=== PATIENT | male | born 1960 | race Caucasian/White ===

== ENCOUNTER → 2019-08-06 13:55 | Outpatient (CLI) | payer OTHER, SELFPAY | PROVIDERS: PCP Family Medicine; Visit Provider Orthopaedic Surgery | DX: Z01.818 Encounter for other preprocedural examination (principal); Z01.812 Encounter for preprocedural laboratory examination; N39.9 Disorder of urinary system, unspecified; Z13.1 Encounter for screening for diabetes mellitus; R73.9 Hyperglycemia, unspecified | CPT/HCPCS: 93005 ==

== ENCOUNTER 2019-10-22 06:02 | Inpatient (IN) | payer OTHER, SELFPAY ==
[2019-10-19 11:57] VITALS: BMI 26.6
[2019-10-22] VITALS (13 sets, daily range): BP systolic 101–180; BP diastolic 56–106; PULSE 71–93; RESP 10–18; TEMP 36.1–36.8; O2SAT 93–99; BMI 26.6
--- NOTE | 2019-10-22 | DI.RAD.S_ITS ---
PROCEDURE: XR HIP W PEL IF DONE RT 4V INDICATIONS: ANTERIOR HIP ARTHROPLASTY TECHNIQUE: Fluoroscopic images were obtained during an operative procedure and submitted for interpretation following the completion of the procedure. COMPARISON: [facility] [place], CR, XR PELVIS WITH BILATERAL LATERAL HIPS, 07/26/2019, 9:30. Outside Film, CR, XR PELVIS WITH BILATERAL LATERAL HIPS, 07/08/2019, 17:57. FINDINGS: These fluoroscopic images were performed for intraoperative localization. On these images, right hip arthroplasty hardware has been placed. No focal abnormality is seen. Please correlate with intraoperative findings. IMPRESSION: Normal intraoperative examination. Dictated by: Gerardo Prince M.D. on 10/22/2019 at 10:48 Approved by: Gerardo Prince M.D. on 10/22/2019 at 10:49
--- NOTE | 2019-10-22 06:00 | DI.RAD.S_ITS ---
PROCEDURE: XR HIP W PEL IF DONE RT 2V INDICATIONS: post op films TECHNIQUE: AP pelvis and lateral view of the right hip acquired. COMPARISON: Outside Film, CR, XR PELVIS WITH BILATERAL LATERAL HIPS, 07/08/2019, 17:57. [facility] [place], CR, XR PELVIS WITH BILATERAL LATERAL HIPS, 07/26/2019, 9:30. [facility], CR, XR HIP W PEL IF DONE RT 4V, 10/22/2019, 9:31. FINDINGS: Bones: Patient is status post right hip arthroplasty, with hardware components in expected positions. The hip joint appears congruent. The visualized bony structures appear intact. Soft tissues: Overlying postoperative changes are noted. No suspicious soft tissue densities. IMPRESSION: Normal postoperative examination. Dictated by: Gerardo Prince M.D. on 10/22/2019 at 11:04 Approved by: Gerardo Prince M.D. on 10/22/2019 at 11:05
[2019-10-22] MEDS: ACETAMINOPHEN 325 MG TABLET 975 MG PO (07:15)
[2019-10-22] MEDS: LACTATED RINGERS 1,000 ML 42 ML IV ×2 (07:15→09:41)
[2019-10-22] MEDS: VANCOMYCIN 1,000 MG/200 ML PIGGYBACK 200 MG IV (07:15)
[2019-10-22] MEDS: PREGABALIN 75 MG CAPSULE PO (07:16)
[2019-10-22] MEDS: MELOXICAM 7.5 MG TABLET 15 MG PO (07:16)
--- NOTE | 2019-10-22 07:46 | PM.PREOP ---
Pre-operative Note Interval Note History & Physical reviewed/Exam performed by Physician: Yes Changes to H&P: No
--- NOTE | 2019-10-22 07:48 | P.OP_ITS ---
Operative Date/Time/Diagnoses Date of procedure: 10/22/19 Time of procedure: 07:59 Pre-op diagnosis: right hip OA Post-op diagnosis: same Procedure & Clinicians Procedure: Right total hip arthroplasty Same procedure as scheduled: Yes Indications: The patient has had progressively worsening right hip pain with radiographic changes consistent with arthritis. Non-operative management has failed and the patient has requested total hip replacement. The risks, benefits and alternatives to surgery were discussed with the patient prior to proceeding. Risks discussed included, but were not limited to, failure to relieve pain, leg length discrepancy, dislocation, stiffness, infection, nerve damage, deep venous thrombosis, pulmonary embolism, stroke, coma, heart attack, permanent paralysis and , as well as the potential need for eventual revision of the prosthetic. Surgeon: Sunitha Orozco Van Driver Helper: Geovanna Vo Anesthesia Type: General and Spinal Operative Notes Findings: Severe right hip osteoarthritis, good stability, adequate bone Closure Type: primary Specimen(s): none sent Prosthetic devices, grafts, tissues, transplants, or devices: Orozco and Nephew 56 mm R3 cup, size 5 standard offset anthology, +0 head Oxinium Applied: catheter Estimated Blood Loss (mL): 250 Blood products transfused: none Procedure in detail: The patient was brought to the operating room. Patient was carefully positioned in the supine position. Time-out was performed and antibiotics were given. Anesthesia was induced. He was positioned in the on the table in order to allow hyperextension of the hip. The right lower extremity was prepped and draped in a standard sterile fashion. An anterior right hip incision was made 1 fingerbreadth lateral to the anterior superior iliac spine and extended distally towards the greater trochanter. Dissection was carried out through skin and subcutaneous tissues. The skin and subcutaneous tissues were carefully injected with Lidocaine with epi. Superficial hemostasis was achieved. The fascia over the tensor fascia shaw was defined and incised with a knife. Two Allis clamps were used to grasp the fascia. Tensor fascia shaw was retracted laterally. A gelpi retractor was placed. Dissection was carried out down along the neck. The circumflex vessels were carefully identified and cauterized with the Aqua Mantis. There was good visualization of the femoral neck. A Cobra was placed superior to the neck and the gluteus fibers were carefully stripped from that superior aspect of the capsule. A 2nd retractor was placed along the inferior aspect of the neck. The rectus insertion along the capsule was partially released. A 3rd retractor that was then gently placed over the rim of the acetabulum under the rectus. Capsule was carefully incised and released from the intertrochanteric line circumferentially superior to the mid sagittal line and inferiorly to the mid sagittal line until the lesser trochanter was palpable. A tag stitch was placed both in the superior and inferior limb of the capsular insertion. Along the acetabulum capsule was also released up to the mid sagittal 12:00 position. A portion of the labrum was resected. A saw was used to perform an osteotomy at the level of the intertrochanteric line and the junction of the superior femoral neck leaving approximately 1 finger breath of residual inferior neck above the lesser trochanter. A 2nd cut was made along the femoral neck at the base of the head and a napkin ring of neck was removed. Corkscrew was placed in the femoral head and the head was removed without difficulty. Retractors were then repositioned around the acetabulum. Residual labrum was resected and additional osteophytes were removed. A reamer that was 4 mm below the templated size was placed by hand in the acetabulum and it was reamed to centralize the acetabulum. It was then reamed up to 2 under the templated size and fluoroscopy was brought in to confirm the position of the reaming and depth of reaming. I reamed 1 under the anticipated size. A trial cup was placed and noted that it was appropriately sized and fluoroscopy confirmed position and depth. The component was open and inserted without difficulty fluoroscopic imaging was used to confirm that the cup had been adequately seated and was well positioned. Neutral poly liner was placed. The cup was tested and noted to be stable. Attention was then directed to the femur. The femur was gently hyperextended additional capsular release was performed as needed in order to allow adequate visualization of the proximal femur with elevation of the femur. Patient was placed in a hyperextended slightly adducted position with maximum external rotation. Box osteotome was used to check for any residual neck as well as sclerotic bone along the trochanter. [place] pepper was placed in the femur. Additional broaching was performed. Canal finder was used to determine the alignment of the canal and position. Size 1 broach was placed. The canal was then appropriately broached up to the templated size as long as there was adequate stability of the broach and serial advancement of the broach without excessive impingement. Specific attention was directed at avoiding varus attempting to direct the distal aspect of the broach more anteriorly and avoiding excessive anteversion. Trial reduction showed acceptable range of motion, good stability, no posterior impingement, holiness of leg length and appropriate lateral shuck. I also hyperflexed the hip and checked that there was no impingement anteriorly and there was good stability with flexion, adduction and internal rotation. Final neutral poly was placed without difficulty. Marcaine and Exparel were injected. The stem was placed without difficulty. Repeat trial reduction and x-ray showed acceptable overall position, length, and no evidence of the femoral fracture. Final head was placed. Wound was meticulously irrigated with normal saline. The hip was reduced and additional Exparel and Marcaine were injected. The capsule was closed with interrupted nonabsorbable sutures. The fascia of the tensor was closed with interrupted and running Vicryl. No drain was placed. Any tensor fascia shaw muscle that appeared to be contused or injured which was a minimal amount was carefully resected. Capsule around the tensor was injected with Exparel and Marcaine. The skin was closed with barbed stitches for the subcutaneous tissue and skin. We also used surgical glue. The wound was dressed sterilely. Brief Betadine soak was also used and was meticulously irrigated with normal saline. Patient was transferred to recovery room in satisfactory condition. Complications: none Post-operative Condition: stable Disposition: Acute Care Plan for aftercare: The patient will be maintained on a standard total hip replacement protocol with weight bearing as tolerated and anterior hip precautions. The patient will receive Aspirin and sequential compression devices for DVT prophylaxis. The patient will be discharged home when safe for the home environment.
[2019-10-22] MEDS: CEFAZOLIN 2 GM/100 ML FROZ.PIGGY IV ×2 (07:50→16:13)
[2019-10-22] MEDS: TRANEXAMIC ACID 1,000 MG VIAL 1000 MG INJ ×2 (08:15→10:50)
--- NOTE | 2019-10-22 08:31 | SUR.OPER ---
Supine on padded [place] table with bilateral legs secured in padded positioning boots and suspended in positioning spars, operative leg in traction per surgeon. Head on one pillow. Arm on non-operative side secured on padded armboard <90 degrees abduction. Arm on operative side padded and resting across chest then secured with tape over sheet. Padded perineal post in place per surgeon.
[2019-10-22] MEDS: BUPIVACAINE 0.25% W/ EPI 30 ML VIAL 60 ML INJ (08:43)
[2019-10-22] MEDS: BUPIVACAINE LIPOSOME 266 MG/20 ML VIAL INJ (08:44)
[2019-10-22] MEDS: SODIUM CHLORIDE IRRIG SOLUTION 250 ML, POVIDONE-IODINE SPONGE STICKS 1 APPLIC IRR (10:56)
[2019-10-22] MEDS: IBUPROFEN 400 MG TABLET PO ×2 (12:53→16:35)
[2019-10-22] MEDS: LACTATED RINGERS 1,000 ML 125 ML IV (12:53)
[2019-10-22] MEDS: POLYETHYLENE GLYCOL 3350 17 GM POWD.PACK PO (12:53)
--- NOTE | 2019-10-22 13:42 | PC.NURSE ---
Day Shift- Report rec'd from YOUNG Renae in PACU at 1149. pt arrived to unit via bed at 1158 into room 216. Pt A&OX4, oriented to call ight, bed functions. Ice pack to right anterior hip. BLE SCD's on, pillow placed under right leg, floated heels. Right anterior hip aquacel dressing CDI. PPP, pt able to bend at knees, encouraged ankle pump exercises. Numbness from groin to toes BLE. Pt denied any pain. Tolerating crackers, juice and water, denies nausea. Pt reported having a previous fall in bathroom within last month. Pt's Mesha in to visit pt and will be back around 1600. No further voiced concerns, call light within reach, bed alarm on.
[2019-10-22] MEDS: ACETAMINOPHEN 325 MG TABLET 650 MG PO (14:24)
[2019-10-22] MEDS: OXYCODONE IR 5 MG TABLET PO (14:25)
--- NOTE | 2019-10-22 15:03 | CM.DANOTE ---
DCP Assessment: EMR reviewed: Patient is a 59 yr old male who was admitted for Rt CASIMIRO preformed by Dr Orozco. Patients PCP is Dr juarez. Cm/RN met with patient at the bedside and explained role. patient was alert and orientedx 3 at time of CM/Rn Visit. Patient is I with all ADLs and driving at base line. Discharge Planning/Care Management CM Discharge Assessment Start: 10/22/19 15:02 Freq: Status: Active Protocol: Document 10/22/19 15:02 (Rec: 10/22/19 15:03 [id number]) Discharge Planning Assessment Assigned Sweater Operator Sylvie Orozco RN DPOA/Assigned Designee Name Mesha Aguayo () Contact Information [phone] Advance Directives? No Advance Directives on File No History Provided By Patient Has Patient been admitted in last 30 No days? Prior Living Arrangements House Household Members spouse Type of transporation used prior to Drives own vehicle admit Independent with ADL's Yes Is patient alert and oriented? Yes Caregiver for Another No Patient/Family Preference OP PT Therapy Discharge Plan Home Referrals Initiated None needed Whiteboard Updated in Patient Room with Yes name and ext. # of Sweater Operator Review Status In Process Next Review Type Continued Stay Review Pre-Anesthesia Assessment Start: 10/19/19 07:45 Freq: Status: Complete Protocol: Document 10/19/19 11:57 Margarita (Rec: 10/19/19 12:35 [facility] [id number]) Pre-Anesthesia Assessment PAC Comment plans to get chlorhexadine today, started mupirocin yesterday am Preferred Name Herbert Assessment Completed With Patient Primary Care Provider Pierre Juarez Seen Specialist in Last 12 Months Yes Specialist Seen Orthopedist Primary Language [employer] Sewer Required No Height 175.26 cm Weight 81.647 kg Body Mass Index (BMI) 26.6 Hearing Ability Normal Visual Impairment Partially Limited Visual Assist Glasses Dentition Type Teeth, Natural Present,Teeth, Missing,Full- Upper Barriers to Learning Auditory,Visual Other Aids No Comment not tolerating upper dentures Hx Anesthesia Reactions No Hx Family Anesthesia Reaction No Hx Malignant Hyperthermia No Hx Blood Transfusions No Hx Blood Transfusion Reaction No Anesthesia Review Requested No Hand Cloth Examiner No alcohol intake current alcohol intake frequency 0-2 drinks per day Alcohol Intake Frequency Other: 2-3/day Smoking Status Current every day smoker Tobacco type cannabis/marijuana Substance Use Type marijuana Pain Present Pain Reported Comment Right Hip Musculoskeletal Symptoms Abnormal Gait,Back Pain, Difficulty Walking,Joint Pain, Joint Stiffness,Joint Swelling ,Limited Range of Motion, Muscle Weakness,Neck Pain, Numbness,Radiating Pain into Limb History of Falling (Recent or History of No ) Patient is completely paralyzed or No completely immobile Ambulatory Aid None/bed rest/nurse assist Gait/Transferring Normal/bedrest/immobile Mental Status Oriented to own ability Comment fell on ice last week Is patient on oxygen? No Does patient have SWEET/SOB Yes: w/activity CPAP/BIPAP use not prescribed Suspected Sleep Apnea No Currently Taking a Beta Leona No Can You Climb a Flight of Stairs Without Yes SOB Hx Chest Pain No Hx SOB Yes Hx Syncope or Dizziness No Anti-Coagulant Therapy No Has a Cooler Tender No Cardiac Testing Yes: Stress test yrs ago Passed Hx Pacemaker/ICD No Pacemaker Rep Required? No Cardiac Clearance Received Not Applicable Diet Type At Home Regular,Other dysphagia No Comment soft foods, mechanical - ie mashed potatoes, meatloaf Bladder Pattern Frequency,Hesitancy, Incontinent,Nocturia,Retention ,Urgency Urinary Catheter Present No Hx Urinary Self Catheterization No Diabetes No Hx Drug Resistant Organism No Presence of External or Internal Medical No Devices Have you traveled outside the [facility] [place] in the last 30 days? Marital Status Lives With spouse Prior Living Arrangements House Number of Floors (Floors) One Floor Number of Stairs To Enter/Railing? 1 step into house Support System Spouse Does the Patient Have Assistance After Yes Surgery Patient Discharge Plan Description Home Health Feels Safe in Current Environment Yes Been Physically Hurt or Threatened By a No Person in Current Environment Do you have thoughts of harming yourself None or others? Are you currently considering suicide? No Do you have a plan to hurt yourself or No Plan others? Comment Verbal aggression at work, denies physical danger Do You Have Any Spiritual Beliefs That No May Affect Your HC Choices? Do You Have Any Cultural Practices That No May Affect Your HC Choices? Spiritual Referral None Who Can We Speak to About Patient's Care Family & Friends Identifying Code for Release of Patient Declined Information Health Care Proxy/Next of Kin - Mesha Aguayo Health Care Proxy Emergency Contact Name - Mesha Aguayo Emergency Contact Advance Directives? No Power of Supervisor Agricultural Education No PAC Instructions Assistance for 24 hours post- op,Do not shave/clip surgical site,Durable medical equipment ,Medications to take/avoid, Nasal antibiotic,No ETOH/ petroleum product on skin DOS, NPO,Ortho class,Post-op transportation,Pre-op antibiotic,Pre-surgical wash, Sensory aids,Sturdy shoes/ comfortable clothes,Do not bring valuables and remove jewelry Patient currently lives in [place] with his in a single level home. 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 Patient has a post op set up for 10/28/2019 and patients will provide patient with transportation home. PT and OT evaluations pending. I: [place] and self pay. Plan: D/C home with support. No identified D/C planning needs noted at this time. Cm/Rn department will follow patient to assist with any new D/C planning needs that may arise. Sylvie Orozco RN
--- NOTE | 2019-10-22 15:32 | PT.IIE ---
Current Diagnoses Unilateral primary osteoarthritis, right hip (10/22/19) Pain in right hip (10/22/19) Surgery Performed Operation Date: 10/22/19 07:45 Actual Procedures p Total Hip Arthroplasty/Anterior Approach(Right) - Sunitha Orozco MD Surgical History (Last Updated 10/19/19 @ 12:35 by Reena Cornelius, RN) History of colonoscopy with polypectomy (Acute) S/P epidural steroid injection (Acute) Medical History (Last Updated 10/19/19 @ 12:29 by Reena Cornelius, RN) Elevated hemidiaphragm (Acute) Herniated disc (Acute) Mild acquired hearing loss (Acute) PTSD (post-traumatic stress disorder) (Acute) Spinal stenosis in cervical region (Acute) Unilateral primary osteoarthritis, right hip (Acute) Physical Therapy Inpatient Evaluation/Re-Eval M1 PT/OT-IP Prior Functional Status Start: 10/22/19 16:57 Freq: NEEDED Status: Active Protocol: Document 10/22/19 15:32 AB (Rec: 10/22/19 17:12 AB [id number]) Medical Review Prior Functional Status Medical History Reviewed Yes Communication able to make needs known Mobility and Gait pt stated that he is independent with all mobilities and ambulation without AD but unable to do long distance ambulation due to hip pain Social History Household Members spouse Living Arrangements House Number of Floors (Floors) One Floor Number of Stairs To Enter/Railing? 1 step to enter Home Environment Standard Height Toilet,Walk in Shower Home Equipment Front Wheel Walker,Raised Toilet Seat w/Armrests,Shower Seat with Backrest,Grab Bars In Shower M2 PT-IP Current Condition Start: 10/22/19 16:57 Freq: NEEDED Status: Active Protocol: Document 10/22/19 15:32 AB (Rec: 10/22/19 17:12 AB [id number]) Physical Therapy Current Condition Current Condition Evaluation Date 10/22/19 Treatment Diagnosis s/p R CASIMIRO anterior approach; difficulty in walking Onset Date 10/22/2019 Precautions Anterior Hip Precautions No Hip Extension,No Hip External Rotation Weight Bearing Status Weight Bearing Status Weight Bear as Tolerated Allowed Weight Bearing Amount (enter % RLE WBAT or #) (%) M3 PT-IP Subjective Start: 10/22/19 16:57 Freq: NEEDED Status: Active Protocol: Document 10/22/19 15:32 AB (Rec: 10/22/19 17:12 AB [id number]) Subjective Physical Therapy Visit Type Type Initial Evaluation Visit Start Time 15:32 Visit Stop Time 16:35 Total Visit Minutes 63 Number of SUBASSEMBLY SUPERVISOR Visits 0 Physical Therapy Visit Comments Patient Comments pt agreeable to do PT Therapy Pain Assessment Pain Present Pain Present Denied Pain M4 PT-IP Mobility and Gait Start: 10/22/19 16:57 Freq: NEEDED Status: Active Protocol: Document 10/22/19 15:32 AB (Rec: 10/22/19 17:12 AB [id number]) PT-Bed Mobility Assessment Supine to Sit Supine to Sit Standby Assistance Scooting Scooting to Edge of Bed Standby Assistance PT-Transfer Assessment Sit to and From Stand Sit to and from Stand Standby Assistance,Contact Guard Assistance,1 Person Assistance,Use of Upper Extremities Equipment Transfer Assistive Device Gait Belt,Front Wheeled Walker Orthotic/Prosthetic Devices or Brace: No Transfers Transfer Destination Chair Transfer Technique ambulated using FWW Transfer Ability Level of Assist Standby Assistance,Contact Guard Assistance Comments Mobility Comments BP supine: 156/99. completed supine to sit SBA. pt was able to sit on EOB SBA. BP: 142/92. pt completed sit to stand CGA. pt seems to get anxious easily and pt confirmed. cued for safety. pt ambulated in room using FWW CGA ~ 30 ft. pt tends to stiffen whole trunk during mobility and becomes anxious but no LOB and pt able to control his body. Spouse came in. pt ambulated farther and completed sit to stand from bed SBA and ambulation using FWW ~ 150 ft SBA. pt completed up/down platform step using FWW initially with PT assisting SBA to CGA and then spouse assisted pt and completed safely. pt assisted back to the room and pt ambulated to the chair using FWW SBA. nurse took over. Gait Assessment Gait Gait Assistance Required: Standby Assistance Distance (Feet) 150 Able to Maintain Weight Bearing Status Yes During Gait Assistive Devices Assistive Device Gait Belt,Front Wheeled Walker Orthotic/Prosthetic Devices or Brace: No Factors Limiting Gait Function Factors Limiting Gait Function Decreased Strength Comments Gait Comments pls refer to mobility section for details Stair Climbing Assessment Evaluation Level of Assist On Stairs Standby Assistance,Contact Guard Assistance Devices Stair Climbing Assistive Devices Front Wheel Walker Technique/Endurance Stair Climbing Direction Ascend and Descend Stair Climbing Technique Step to Step Number of Steps Climbed 1 Query Text: Stair Climbing Set # Repetitions (reps) 2 Comments Stair Climbing Comments pls refer to mobility section for details PT-Balance Assessment Sitting Balance and Reactions Static Sitting Balance Ability Normal Dynamic Sitting Balance Ability Normal Standing Balance and Reactions Static Standing Balance Ability Good Dynamic Standing Balance Ability Fair Device Used FWW M5 PT-IP Objective Assessments Start: 10/22/19 16:57 Freq: NEEDED Status: Active Protocol: Document 10/22/19 15:32 AB (Rec: 10/22/19 17:12 [id number]) Orientation Orientation/Cognition Level of Alertness Alert Orientation Name,Age,Birthday,Month,Date, Year,Day of Week,Place, Situation Language Function Ability No Deficits Noted Safety Awareness Understands Safety Issues Memory Description No Deficits Noted Gross Range of Motion Lower Extremity ROM Assessment Within Functional Limits Strength Lower Extremity Strength Assessment Right Impaired Hip 3+/5 Knee 4+/5 Coordination Assessment Gross Coordination Gross Coordination WNL Sensation Assessment Sensation Gross Sensation Right LE Impaired Sensation Description Numbness Comments Sensation Comments c/o numbness on anterior thigh area Muscle Tone Muscle Tone WNL Yes M6 PT-IP Treatment Start: 10/22/19 16:57 Freq: NEEDED Status: Active Protocol: Document 10/22/19 15:32 AB (Rec: 10/22/19 17:12 [id number]) Physical Therapy Treatment Education Education Provided Precautions,Weight Bearing Status,Post-Op Packet,Safety Other Treatments Other Treatment Performed reveiwed hip precautions with pt M7 PT-IP Assessment and Plan Start: 10/22/19 16:57 Freq: NEEDED Status: Active Protocol: Document 10/22/19 15:32 AB (Rec: 10/22/19 17:12 [id number]) PT Summary Assessment and Plan Potential Rehabilitation Potential Excellent Status of Condition at Evaluation Stable Summary Impairments Pain,ROM,Strength,Balance, Sensation,Bed Mobility, Transfers,Gait,Activity Tolerance Assessment Summary pt requires SBA to CGA with mobility and plans to go home with spouse to assist him. pt may go home when medically stable. Goals Bed Mobility Goal Independent Transfer Goal Independent,Front Wheeled Walker Gait Goal Independent,Front Wheel Walker Gait Distance 300 Other Goals up/down 1 step using FWW mod I3 Frequency of Treatment Frequency Of Treatment Twice a Day Treatment Plan Physical Therapy Treatment Plan Bed Mobility Training,Transfer Training,Gait Training, Therapeutic Exercise,Balance Retraining,Post Op Education, Discharge Planning,Hot or Cold Pack,Neuromuscular Re-ed, Coordination Retraining,Manual Therapy Recommendations To Nursing Amount of Assist Needed 1 Person Assist Discharge Recommendations PT Discharge Recommendations Home with Assistance, Outpatient PT Transportation Needs at Discharge Private Vehicle
--- NOTE | 2019-10-22 17:37 | PC.NURSE ---
Pt states he is ready to go home. One dose ceflazolin given and complete. Pt has eaten dinner and voided qs x 2. He rates his pain 1/10. Pt has signed off. Spouse is here to assist patient, and he has his own FWW.
== END 2019-10-22 18:18 | disposition home or self-care (01) | DRG 470 ==
PROVIDERS: Admitting Provider Orthopaedic Surgery; PCP Family Medicine; Visit Provider Orthopaedic Surgery
PROC: 0SR902Z Replacement of Right Hip Joint with Metal on Polyethylene Synthetic Substitute, Open Approach (ICD-10-PCS; CPT 27130; principal; 2019-10-22 07:45)
DX: M16.11 Unilateral primary osteoarthritis, right hip (principal); F32.9 Major depressive disorder, single episode, unspecified
CPT/HCPCS: 73502; 73503; 76000; 97116; 97161; 97535; 99406; C1776; C9290; J0171; J0690; J1100; J2250; J2405; J2704; J3010

== ENCOUNTER 2023-11-26 12:03 | Inpatient (IN) | payer OTHER, SELFPAY ==
[2019-10-22 12:15] VITALS: BMI 26.6
[2023-11-18 08:55] VITALS: BMI 27.3
[2023-11-26] VITALS (13 sets, daily range): BP systolic 82–189; BP diastolic 53–114; PULSE 66–89; RESP 12–19; TEMP 36.2–37.1; O2SAT 93–99; BMI 27.3; BMI 29.9
--- NOTE | 2023-11-26 | DI.RAD.S_ITS ---
PROCEDURE: XR LUMBAR SPINE 2-3V INDICATIONS: L5-S1 TLIF L4-5 DISECTOMY TECHNIQUE: 3 intraoperative fluoroscopic images COMPARISON: None. FINDINGS: Three intraoperative images demonstrate L5 any at L1 the fixation is intervertebral body spacers. IMPRESSION: Intraoperative fluoroscopic images demonstrate L5-S1 spinal fixation. Please see operative report for full details. Approved by: Cleo Paz M.D. on 11/28/2023 at 7:16
[2023-11-26] MEDS: LACTATED RINGERS 1,000 ML 42 ML IV (13:09)
--- NOTE | 2023-11-26 13:34 | PM.HP.1 ---
History of Present Illness History of Present Illness Date Patient Seen: 11/26/23 Time Patient Seen: 13:34 Date of Onset of Symptoms: 05/05/23 Chief complaint: back pain, left leg pain Narrative: Alfred is a 62 year old male who presents today for a lumbar spine follow up. He notes ongoing low back and left lower extremity symptom. He experiences flare ups, low back pain, left hip/groin, left sciatica, and left lower extremity numbness, tingling, and weakness. Symptoms worsen with prolonged sitting, and standing. Pain is alleviates with movement or laying. Treatments include taking Aleve consistently, and tylenol PM. Last SABRINA completed 03/24/2023 provided some relief, but activities still increase pain, and his abilities are limited due to symptoms. [facility] Medical History History of COVID-19 (2022) Elevated hemidiaphragm Herniated disc Spinal stenosis in cervical region Mild acquired hearing loss PTSD (post-traumatic stress disorder) Unilateral primary osteoarthritis, right hip Surgical History History of total right hip replacement (10/22/19) History of colonoscopy with polypectomy S/P epidural steroid injection Social History household members: spouse Smoking Status: Former smoker alcohol intake: current Meds Home Medications and Allergies Home Medications Medication Instructions Recorded Confirmed Type diphenhydramine 25 2 tab PO BEDTIME 11/18/23 11/26/23 History mg-acetaminophen 500 mg tablet (Acetaminophen PM) duloxetine 30 mg capsule,delayed 30 mg PO BEDTIME 11/18/23 11/26/23 History release naproxen sodium 220 mg capsule 220 mg PO BID PRN Pain 11/18/23 11/26/23 History (Aleve) Allergies Allergy/AdvReac Type Severity Reaction Status Date / Time Sulfa (Sulfonamide Allergy Unknown Childhood Verified 11/26/23 12:27 Antibiotics) Exam Vital Signs (past 8 hours): - 11/26/23 12:50 Temperature 97.2 F L Pulse Rate 86 Respiratory Rate 16 Blood Pressure 175/111 H Pulse Oximetry 97 Oxygen Delivery Method Room Air Oxygen Delivery Method Room Air Back/Spine/Pelvis Other: Painful ROM of lumbar spine. Neuro Other: + straight leg raise to LLE. Sensiblity decreased to left L4, L5, S1 dermatome Motor strength 4/5 in left TA, EHL DTR 1+ left achilles - clonus BLE. Assessment & Plan Assessment & Plan narrative: Mr. Aguayo is here for f/u of his lumbar. He has been having severe left leg radiculopathy and back pain for over 1 year. He failed over 6 months of conservative with worsening pain, weakness and numbness to his left leg. He has significant difficulty performing activities of daily living. He has L5-S1 spondylolisthesis and foramen stenosis. He has L4-5 left far lateral disc herniation with nerve roots impingement. I discussed treatment options with risks and benefits. He may benefit from L5-S1 TLIF and L4-5 left extraforamen microdiscectomy to address his spondylolisthesis and disc herniation. Risks for surgery include but not limited to bleeding, infection, nerve/dura/bladder/bowel/blood vessel injury, need for additional procedure, even . Patient understands and would like to proceed with surgery. I scheduled him for L5-S1 TLIF, L4-5 left extraforamen microdiscectomy.
[2023-11-26] MEDS: CEFAZOLIN 2 GM/100 ML PREMIX 100 ML IV ×2 (14:39→22:17)
--- NOTE | 2023-11-26 14:54 | SUR.OPER ---
Supine on padded OR bed. Pillow under head, arms secured on padded armboards <90 degree abduction. Safety belt across torso. Non-operative leg secured with tape over blanket over lower leg. Operative leg secured in DeMayo/Reagan/Nathe positioner. Foam padded brace at thigh of operative leg.
[2023-11-26] MEDS: BUPIVACAINE 0.25% (PF) 30 ML, EPINEPHrine 0.15 MG INJ (15:00)
[2023-11-26] MEDS: BUPIVACAINE LIPOSOME 266 MG/20 ML VIAL INJ (15:01)
[2023-11-26] MEDS: SODIUM CHLORIDE 0.9% 1,000 ML 100 ML IV (17:00)
--- NOTE | 2023-11-26 17:06 | PM.OP.1 ---
Operative Date/Time/Diagnoses Date of procedure: 11/26/23 Time of procedure: 14:00 Pre-op diagnosis: 1. L4-5 left far lateral disc herniation 2. L5-S1 retrolisthesis 3. L5-S1 foraminal stenosis Post-op diagnosis: same Procedure & Clinicians Procedure: 1. L5-S1 Postero-lateral and posterior interbody fusion 2. L5-S1 interbody cage placement. 3. L5-S1 decompressive laminectomy with bilateral facetecomies 4. L5-S1 Posterior non-segmental instrumentation 5. [place] of bone marrow from iliac crest 6. L4-5 left far lateral microdiscectomy using extramforaminal approach 7. Utilization of microsurgical technique and operating microscope Same procedure as scheduled: Yes Indications: Patient has been having chronic back pain and worsening lumbar radiculopathy, mostly on the left side. He was found to have L5-S1 severe degenerative disc disease, retrolisthesis. There is also bilateral neuroforaminal stenosis at L5-S1 level. Patient also has a L4-5 left far lateral disc herniation causing significant foraminal stenosis at L4-5 level on the left. Patient failed multiple conservative management with worsening back pain weakness and numbness in his lower extremity. Patient has been having difficulty performing activity of daily living. After discussing risks benefits of treatment options, patient elected proceed with surgery. Surgeon: Maxine Teixeira Telecommunications Administrator: Malia Thao Click Yes if Unassisted: No Anesthesia Type: General Operative Notes Closure Type: primary Specimen(s): none sent Prosthetic devices, grafts, tissues, transplants, or devices: Globus revolve screws, Rise cage Applied: catheter Estimated Blood Loss (mL): 100 Blood products transfused: none Procedure in detail: Patient was seen in the preoperative area. Risks and benefits of the surgery was discussed with the patient. Informed consent was obtained from the patient and placed in the chart. Surgical site was marked. Patient was taken to the operative room. General anesthesia was administered. Prophylactic antibiotic was given to the patient less than 30 min before the incision was made. Patient was placed into a prone position on the Kyle table. Patient's back was then prepped and draped in the sterile fashion. Time-out was performed at this time. Using AP and lateral C-arm imaging the interval between L5-S1 was identified and marked on patient's back. A 2 inch incision 2 in from midline was made on the left side first. The fascia was incised in line with skin incision. Globus MARS retractors was placed inside the incision and docked onto the L5 lamina. Using microsurgical technique and operating microscope, a L5 laminectomy and L5-S1 facetectomy was performed using a Kerrison rongeur. Patient was found have severe lateral recess and neural foramen stenosis which was fully decompressed after the laminectomy facetectomy. The laminectomy and facetectomy was performed in order to decompress patient's cauda equina as well as the nerve roots exiting at the L5-S1 level. More than 75% of the facets were removed during the process of decompression rendering L5-S1 level grossly unstable and required a fusion procedure at the same time. The disc space at L5-S1 was identified. And a total diskectomy was performed at L4-5 level. The endplates were decorticated using a rasp and shaver. The total diskectomy and decortication was performed at L5-S1 level in order to to accomplish a L5-S1 fusion. The local bone from the laminectomy and facetectomy was saved for local bone grafting. After the total diskectomy and decortication was completed, DBM bone graft material was combined with local bone that was harvested earlier. At this time, a separate skin is incision was made over the iliac crest. A Jamshidi needle was inserted into the iliac crest through a separate skin incision. 5 cc of bone marrow aspiration was obtained through the separate skin incision using a Jamshidi needle from the iliac crest. The bone marrow aspiration was combined with local bone and the DBM bone grafting material. The bone grafting material was placed into the L5-S1 interbody space along with a expandable cage. The cage was expanded to its maximum height using the torque limiting screwdriver. At this time the MARS retractor was redirected over the L4-5 level. Extraforaminal approach was used to visualize the L4-5 neural foramen by docking the retractor onto the transverse process on the left side at L4-5 level and tilting retractor to look inside L4-5 neural foramen from the left side. The placement of the retractor was confirmed with C-arm imaging. Microscope and microsurgical technique was used to visualize the neural foramen. Bipolar and nerve root retractor was used to dissect into the neural foramen and protecting the L4 nerve root on the left side using a retractor. Extruded disc fragments was visualized in the neural foramen which was resected using a pituitary. The neuroforamen was inspected using a micro curette as well as visually. The neural foramen was patent after the microdiskectomy was completed using this extraforaminal approach. At this time a mirror image incision was made on the right side. The fascia was incised in line with the skin incision. Globus MARS retractor was inserted and docked onto the L5-S1 posterolateral gutter. Using the power drill, posterior-lateral decortication was performed at L5-S1 level until bleeding cortical bone was identified. The remaining bone grafting material was placed into the L5-S1 posterior lateral gutter he order to accomplish posterolateral fusion at the L5-S1 level. Using the double C-arm technique, pedicle screws were placed into the L5-S1 pedicles bilaterally. This was done by placing the Jamshidi needle into the pedicles, then placing the guidewires over the Jamshidi needle, and finally placing the cannulated screws over the guidewires bilaterally. After the pedicle screws were placed, 2 titanium rods was locked into the heads of the pedicle screws using locking caps and torque limiting screwdriver. After all the hardware was placed, and confirmed with AP and lateral C-arm imaging, the wound was then irrigated with sterile normal saline and packed with Ray-Mani gauze for 3 min to accomplish hemostasis. After the gauze was removed the deep fascia was closed with #1 Vicryl suture. The subcutaneous layer was closed with 2-0 Vicryl. The skin was closed with skin trice. Patient tolerated the procedure well. There were no complications. The Operation could not have been safely performed without compromising the technical result or length of the procedure, without the assistance of a skilled assistant professor surgical technology. The assistant professor surgical technology was medically necessary for proper positioning, retraction and manipulation of instruments, proper exposure, surgical preparation, and manipulation of tissue. Neuro monitoring was performed during entire procedure the signal was stable throughout her procedure without changes. Complications: none Post-operative Condition: stable Disposition: PACU Plan for aftercare: Admit to inpatient hospital
[2023-11-26] MEDS: OXYCODONE IR 5 MG TABLET PO (17:40)
[2023-11-26] MEDS: hydrOXYzine 50 MG/ML INJ 25 MG IM (17:40)
[2023-11-26] MEDS: ACETAMINOPHEN IV 1,000 MG/100 ML VIAL 400 MG IV (18:01)
[2023-11-26] MEDS: LACTATED RINGERS 1,000 ML 125 ML IV (18:55)
[2023-11-26] MEDS: SENNOSIDES 8.6 MG TABLET 17.2 MG PO (20:42)
[2023-11-26] MEDS: DULOXETINE 30 MG CAPSULE PO (20:42)
[2023-11-26] MEDS: DOCUSATE 100 MG CAPSULE PO (20:42)
[2023-11-26] MEDS: OXYCODONE IR 10 MG TABLET PO (20:44)
[2023-11-27] MEDS: LACTATED RINGERS 1,000 ML 125 ML IV (03:33)
[2023-11-27] MEDS: OXYCODONE IR 10 MG TABLET PO ×4 (03:33→16:26)
--- NOTE | 2023-11-27 05:13 | PC.NURSE ---
Did not sleep well last night. Pain level reported @ 5/10 offered Dilaudid IVP, but he declined states I don't want any Dilaudid. I'll take oxycodone when it's available. Will monitor.
[2023-11-27 06:50] VITALS: BP 164/106; PULSE 101; RESP 18; TEMP 37.3; O2SAT 95
[2023-11-27] MEDS: CEFAZOLIN 2 GM/100 ML PREMIX 100 ML IV (06:51)
--- NOTE | 2023-11-27 06:59 | PC.NURSE ---
Temp. 99.2, using his IS up to 1999 took 7 breaths with the IS. B/P still elevated reported my blood pressure is always high, I need to see my doctor to help me with my high blood pressure. Denies any headache, chest pain & other sign & symptoms of hypertension. Will cont. POc & monitor.
--- NOTE | 2023-11-27 07:39 | PC.NURSE ---
[facility] notified with pt. elevated B/P of 165/106, Temp. of 99.2. Day RN. Martin also made aware.
--- NOTE | 2023-11-27 07:44 | PM.PNPO.1 ---
Subjective Subjective Date Patient Seen: 11/27/23 Time Patient Seen: 07:44 Interval history: Patient's pain has been [id number]. Denies fever or chills. Patient has not been out of bed since surgery. Patient is using bedside urinal. Exam Vital Signs (past 8 hours): - 11/27/23 06:50 Temperature 99.2 F Pulse Rate 101 H Respiratory Rate 18 Blood Pressure 164/106 H Pulse Oximetry 95 Fraction of Inspired Oxygen 21 Oxygen Delivery Method Room Air Oxygen Flow Rate 0 Narrative Exam Narrative: 63-year-old male resting comfortably in bed in no apparent distress. Motor functions intact bilateral lower extremities. Const General: cooperative and comfortable Nutritional Appearance: average body habitus Orientation: alert Resp Effort & Inspection: normal respiratory effort and able to speak in complete sentences [facility] Medical History History of COVID-19 (2022) Elevated hemidiaphragm Herniated disc Spinal stenosis in cervical region Mild acquired hearing loss PTSD (post-traumatic stress disorder) Unilateral primary osteoarthritis, right hip Surgical History History of total right hip replacement (10/22/19) History of colonoscopy with polypectomy S/P epidural steroid injection Social History household members: spouse Smoking Status: Current some day smoker alcohol intake: current Assessment & Plan Post-op Postoperative Procedures: Procedures Operation Date: 11/26/23 13:45 Actual Procedure Side Surgeon p L5-S1 TLIF, Left L4-5 far lateral microdiscectomy Maxine Teixeira MD Postoperative day: 1 Postoperative status: doing well Postoperative plan: routine post-op care Postoperative plan narrative: Multimodal pain management Mobilize with physical therapy, limit bending, twisting, lifting Disposition likely today after physical therapy Quality VTE Deep Vein Thrombosis/Pulmonary Embolism Present on Admission: No
[2023-11-27 08:00] VITALS: BP 168/98; PULSE 90; RESP 16; TEMP 36.1; O2SAT 96
[2023-11-27] MEDS: DOCUSATE 100 MG CAPSULE PO (10:33)
--- NOTE | 2023-11-27 10:50 | PC.NURSE ---
Addendum entered by Veronica Zaragoza R.N. 11/27/23 11:56: Patient up and ambulated with physical therapy, patients blood pressure 160s/100s at this time. He also states that he feels a little off, maybe from the pain medication. He is sitting up in the chair and is comfortable. Original Note: Patient has a dry dressing that is bulky to his lower back, he stated that his pain to back is 7/10. Given oxycodone 10mg and his stool softner. The pain medication has helped keep him comfortable every 3 hours. The dressing to his back is peeling up on one corner, will change this later after patient is done working with physical therapy or before he discharges home. He is resting on his side comfortably and knows not to bend, twist, or lift.
--- NOTE | 2023-11-27 11:58 | PT.IIE ---
Current Diagnoses Spondylolisthesis, lumbosacral region (11/26/23) Intervertebral disc disorders with radiculopathy, lumbar region (11/26/23) Surgery Performed Operation Date: 11/26/23 13:45 Actual Procedures p L5-S1 TLIF, Left L4-5 far lateral microdiscectomy - Maxine Teixeira MD Surgical History (Last Reviewed 11/26/23 @ 13:34 by Maxine Teixeira MD) History of colonoscopy with polypectomy History of total right hip replacement (10/22/19) S/P epidural steroid injection Medical History (Last Reviewed 11/26/23 @ 13:34 by Maxine Teixeira MD) Elevated hemidiaphragm Herniated disc History of COVID-19 (2022) Mild acquired hearing loss PTSD (post-traumatic stress disorder) Spinal stenosis in cervical region Unilateral primary osteoarthritis, right hip Physical Therapy Inpatient Evaluation/Re-Eval M1 PT/OT-IP Prior Functional Status Start: 11/27/23 10:52 Freq: NEEDED Status: Active Protocol: Document 11/27/23 11:13 MB (Rec: 11/27/23 11:58 MB [id number]) Medical Review Prior Functional Status Medical History Reviewed Yes Diet/Fluid Consistency Regular Communication WNLs Mobility and Gait I Activities of Daily Living and IADL's I, 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 [employer] PT-IP Current Condition Start: 11/27/23 10:52 Freq: NEEDED Status: Active Protocol: Document 11/27/23 11:13 MB (Rec: 11/27/23 11:58 MB [id number]) Physical Therapy Current Condition Current Condition Evaluation Date 11/27/23 Treatment Diagnosis L5-S1 fusion, L4-5 microdiscectomy M3 PT-IP Subjective Start: 11/27/23 10:52 Freq: NEEDED Status: Active Protocol: Document 11/27/23 11:13 MB (Rec: 11/27/23 11:58 MB [id number]) Subjective Physical Therapy Visit Type Type Initial Evaluation Visit Start Time 11:13 Visit Stop Time 11:43 Number of PROGRAM COORDINATOR EXECUTIVE EDUCATION Visits 0 Physical Therapy Visit Comments Patient Comments We were just asking about PT! Therapy Pain Assessment Pain When Pain Assessed At Rest Pain Present Pain Present Pain Reported Location R buttock Intensity 5 Scale Used Berry-Francis (Faces) Description Acute Pain Behaviors Guarding,Holding Area Pain Management Techniques Distraction,Re-positioning back Intensity 7 Scale Used Numeric (0 - 10) Description Aching Pain Behaviors Guarding Pain Management Techniques Distraction,Re-positioning M4 PT-IP Mobility and Gait Start: 11/27/23 10:52 Freq: NEEDED Status: Active Protocol: Document 11/27/23 11:13 MB (Rec: 11/27/23 11:58 MB [id number]) PT-Bed Mobility Assessment Rolling Type of Rolling Log Rolling,Roll to Right,Roll to Left,Bilateral Level of Assist Standby Assistance,1 Person Assistance Supine to Sit Supine to Sit Standby Assistance,1 Person Assistance Sit to Supine Sit to Supine Standby Assistance,1 Person Assistance Scooting Scooting to Edge of Bed Standby Assistance Scooting Up and Down in Bed Standby Assistance PT-Transfer Assessment Sit to and From Stand Sit to and from Stand Standby Assistance,1 Person Assistance Equipment Transfer Assistive Device Gait Belt,Front Wheeled Walker Orthotic/Prosthetic Devices or Brace: No Transfers Transfer Destination Chair Transfer Technique Stepping Transfer Ability Level of Assist Standby Assistance Comments Mobility Comments Cues for log roll technique and education in back precautions and cues not to twist when standing and to flex at hips and knees and reach back for chair for sitting. Pt is orthostatic and light-headed when up but his BP is so high in supine, it drops to normal range. BP and HR in LUE: supine 172/101, 94; standing 136/81, 100; after gait in standing 158/103, 102. Tried one bed transfer with bed as high as his at home and he is able to do it. Gait Assessment Gait Gait Assistance Required: Standby Assistance,1 Person Assist Distance (Feet) 80 Able to Maintain Weight Bearing Status Yes During Gait Assistive Devices Assistive Device Gait Belt,Front Wheeled Walker Orthotic/Prosthetic Devices or Brace: No Gait Deviations General Gait Pattern Antalgic,Decreased Stride Length Factors Limiting Gait Function Factors Limiting Gait Function Decreased Activity Tolerance, Decreased Sensation,Decreased Strength,Pain Comments Gait Comments Pt gait trains 80' x2 and he reports better pain than pre- op in LLE but numbness in that leg and he reports right buttock pain with gait. His back pain is better with gait. His gait is slow and careful with rolling walker. Stair Climbing Assessment Evaluation Level of Assist On Stairs Standby Assistance,1 Person Assistance Devices Stair Climbing Assistive Devices Front Wheel Walker Technique/Endurance Stair Climbing Direction Ascend and Descend Stair Climbing Technique Step to Step Number of Steps Climbed 1 Query Text: Stair Climbing Set # Repetitions (reps) 1 Comments Stair Climbing Comments Ed pt in step up with RW first , then feet, turn on top of step using feet and moving walker and then flex at hips and knees to lower walker and ease stepping down to protect back and help balance PT-Balance Assessment Sitting Balance and Reactions Static Sitting Balance Ability Good Dynamic Sitting Balance Ability Good Standing Balance and Reactions Static Standing Balance Ability Good Dynamic Standing Balance Ability Fair Device Used RW M5 PT-IP Objective Assessments Start: 11/27/23 10:52 Freq: NEEDED Status: Active Protocol: Document 11/27/23 11:13 MB (Rec: 11/27/23 11:58 [id number]) Orientation Orientation/Cognition Level of Alertness Alert Orientation Name,Age,Birthday,Month,Date, Year,Day of Week,Place, Situation Language Function Ability No Deficits Noted Safety Awareness Decreased Safety Awareness Memory Description No Deficits Noted Gross Range of Motion Upper Extremity ROM Impairments Defer to OT Lower Extremity ROM Assessment Within Functional Limits Strength Comments Strength Comments MMT LEs deferred d/t pain Sensation Assessment Sensation Gross Sensation Left LE Impaired Sensation Description Numbness M6 PT-IP Treatment Start: 11/27/23 10:52 Freq: NEEDED Status: Active Protocol: Document 11/27/23 11:13 MB (Rec: 11/27/23 11:58 [id number]) Physical Therapy Treatment Education Education Provided Precautions,Weight Bearing Status,Post-Op Packet,Safety Other Treatments Other Treatment Performed Back precautions, log roll technique, steps, functional activities M7 PT-IP Assessment and Plan Start: 11/27/23 10:52 Freq: NEEDED Status: Active Protocol: Document 11/27/23 11:13 MB (Rec: 11/27/23 11:58 MB [id number]) PT Summary Assessment and Plan Potential Rehabilitation Potential Good Status of Condition at Evaluation Evolving Summary Impairments Pain,Strength,Balance, Coordination,Sensation,Bed Mobility,Transfers,Gait, Activity Tolerance Progress Towards Goals Safe For Discharge Assessment Summary Pt has better left leg pain and reports of LLE numbness post-op and he c/o right glute pain when he is up. Pt's BP is very high in supine and then he is orthostatic and symptomatic once up. When BP is checked after gait, it is still high. Pt requires SBA for all mobility and will have assistance at home. Recommmend OPPT when cleared by surgeon. Frequency of Treatment Frequency Of Treatment Discharge Precautions Lumbar Precautions Log Roll,No Twisting,Limit Bending,Lifting Restriction of 10 lbs,Gait Belt above Incisional Area Weight Bearing Status Weight Bearing Status Weight Bear as Tolerated Recommendations To Nursing Amount of Assist Needed 1 Person Assist Discharge Recommendations PT Discharge Recommendations Home with 21/04 Assist Available,Outpatient PT Transportation Needs at Discharge Private Vehicle
--- NOTE | 2023-11-27 11:59 | OT.IP.EVAL ---
Current Diagnoses Spondylolisthesis, lumbosacral region (11/26/23) Intervertebral disc disorders with radiculopathy, lumbar region (11/26/23) Surgery Performed Operation Date: 11/26/23 13:45 Actual Procedures p L5-S1 TLIF, Left L4-5 far lateral microdiscectomy - Maxine Teixeira MD Past Medical History (Last Reviewed 11/26/23 @ 13:34 by Maxine Teixeira MD) Elevated hemidiaphragm Herniated disc History of COVID-19 (2022) Mild acquired hearing loss PTSD (post-traumatic stress disorder) Spinal stenosis in cervical region Unilateral primary osteoarthritis, right hip Surgical History (Last Reviewed 11/26/23 @ 13:34 by Maxine Teixeira MD) History of colonoscopy with polypectomy History of total right hip replacement (10/22/19) S/P epidural steroid injection Occupational Therapy Inpatient Evaluation/Re-Eval M1 PT/OT-IP Prior Functional Status Start: 11/27/23 12:52 Freq: NEEDED Status: Active Protocol: Document 11/27/23 12:53 [facility] (Rec: 11/27/23 13:05 [facility] [id number]) Medical Review Prior Functional Status Medical History Reviewed Yes Diet/Fluid Consistency Regular Communication WNLs Mobility and Gait I Activities of Daily Living and IADL's I, 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 Social History Household Members spouse Living Arrangements House Number of Floors (Floors) One Floor Number of Stairs To Enter/Railing? 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 [employer] OT-IP Current Condition Start: 11/27/23 12:52 Freq: Status: Active Protocol: Document 11/27/23 12:53 [facility] (Rec: 11/27/23 13:05 [facility] [id number]) Occupational Therapy Current Condition Current Condition Evaluation Date 11/27/23 Treatment Diagnosis S/P L405 far lateral microdiscectomy, L5-S1 TLIF Diagnosis Onset Date 11/26/23 Post Operative Precautions Lumbar Precautions Log Roll,No Twisting,Limit Bending,Lifting Restriction of 10 lbs,Gait Belt above Incisional Area M3 OT- IP Subjective and Pain Start: 11/27/23 12:52 Freq: Status: Active Protocol: Document 11/27/23 12:53 [facility] (Rec: 11/27/23 13:05 [facility] [id number]) OT- Subjective Occupational Therapy Visit Type Type Initial Evaluation Visit Start Time 11:27 Visit Stop Time 11:59 Occupational Therapy Visit Comments Patient Comments Pt agree to work with OT and pt's family in the room for caregiver training. Patient/Caregiver Goals To go home. OT Pain Assessment Pain When Pain Assessed During Mobility Pain Present Pain Present Pain Reported Location R buttock Intensity 7 Scale Used Numeric (0 - 10) M4 OT- IP ADL's Start: 11/27/23 12:52 Freq: Status: Active Protocol: Document 11/27/23 12:53 [facility] (Rec: 11/27/23 13:05 [facility] [id number]) OT [id number] General Evaluation Self-Feeding Ability Independent OT ADL-Grooming Comments OT Grooming Comments Pt refused. OT ADL-Oral Care Comments Oral Care Comments Pt refused. Educated best to hinge at his hip or just spit into a cup for oral care needs to best follow his back precautions. OT ADL-Dressing General Eval Lower Body Dressing Ability Moderate Assistance Comments OT Dressing Comments Pt able to practice use of city wellness coordinator and sock aid. OT ADL-Toileting Comments OT Toileting Comments Pt not having to go. Pt normally sit too urinate. Educated pt to be mindful not to twist during toileting needs. OT ADL-Bathing Comments OT Bathing Comments Suggested to get tub bench and education of care for bandage needs while showering. M5 OT- IP IADL's Start: 11/27/23 12:52 Freq: Status: Active Protocol: Document 11/27/23 12:53 [facility] (Rec: 11/27/23 13:05 [facility] [id number]) OT-Instrumental Activities of Daily Living Deficits IADL Deficits Identified Deficits Home Safety Awareness Awareness of Need for Assistance at Home Good Awareness Ability to Problem Solve Emergency Able to Problem Solve Situations Home Safety Comments Pt's family to be home to assist. Meal Preparation Meal Preparation Caregiver Provides Assist Director Of Consulting Services Director Of Consulting Services Caregiver Provides Assist M6 OT- IP Functional Cognition Start: 11/27/23 12:52 Freq: Status: Active Protocol: Document 11/27/23 12:53 [facility] (Rec: 11/27/23 13:05 [facility] [id number]) Cognitive Factors Limiting Selfcare Function Cognitive Ability Level of Alertness Alert Patient Orientation Name,Age,Birthday,Month,Date, Year,Day of Week,Place, Situation Attention Span Ability Capable of Focused Attention, Capable of Sustained Attention Ability to Follow Commands Able to Follow One Step Commands Safety Awareness Decreased Ability to Apply Precautions Cognitive Comments Cognitive Assessment Comments Pt needing repetitive cues to incorporate his precautions during ADL and mobility needs. OT- Vision and Hearing OT- Hearing Assessment OT- Hearing Assessment WFL M7 OT- IP Mobility and Balance Start: 11/27/23 12:52 Freq: Status: Active Protocol: Document 11/27/23 12:53 [facility] (Rec: 11/27/23 13:05 [facility] [id number]) OT- Bed Mobility Assessment Supine to Sit Supine to Sit Assist Standby Assistance Sit to Supine Sit to Supine Assist Standby Assistance OT-Transfer Assessment Sit to and From Stand Sit to and from Stand Standby Assistance Transfers Transfer Ability Standby Assistance Technique Transfer Destination Bed Devices Transfer Assistive Devices Gait Belt,Front Wheeled Walker Comments Mobility Comments SBA for needs. Pt having high BP 107/101 supine, standing 136/81, and after getting to the chair 166/100 - nursing notified that pt feeling weak and sweaty. OT- Balance Assessment Sitting Balance and Reactions Static Sitting Balance Ability Good Dynamic Sitting Balance Ability Good Standing Balance and Reactions Static Standing Balance Ability Good Dynamic Standing Balance Ability Fair M8 OT- IP Objective Assessments Start: 11/27/23 12:52 Freq: Status: Active Protocol: Document 11/27/23 12:53 [facility] (Rec: 11/27/23 13:05 [facility] [id number]) OT Gross Range of Motion Upper Extremity Range of Motion ROM Impairments WFL for needs. OT Strength Comments Strength Comments WFL for needs. M9 OT- IP Assessment and Plan Start: 11/27/23 12:52 Freq: Status: Active Protocol: Document 11/27/23 12:53 [facility] (Rec: 11/27/23 13:05 [facility] [id number]) OT Summary Assessment and Plan Potential Rehabilitation Potential Good Analytic Complexity at Evaluation Low Summary OT Impairments Pain,Strength,Balance, Functional Mobility,Dressing, Toileting,Bathing,Toilet Transfers,Shower Transfers Progress Towards Goals Progressing Toward Goals,Slow Progress due to Medical Issues Assessment Summary Pt doing well however biggest barriers are pain and having high BP and then a bit orthostatic reading after standing, nursing notified. Able to do over ADL needs and mobility including technique for car transfers. Pt to go home when medically stable. Goals Grooming Goal Independent Dressing Goal Independent,Long Handled Shoe Horn,Mobile Ui/Ux Designer,Sock Aid Toileting Goal Independent Bathing Goal Standby Assistance Toilet Transfer Goal Independent Shower Transfer Goal Standby Assistance Days to Meet Goals 3 Frequency of Treatment Frequency Of Treatment Once a Day Treatment Plan OT Treatment Plan ADL Training,Functional Mobility,Patient/Family Education,Discharge Planning Discharge Recommendations OT Discharge Recommendations Home with Assistance Home Equipment Needs sock aid, city wellness coordinator Transportation Needs at Discharge Private Vehicle
--- NOTE | 2023-11-27 13:49 | CM.DANOTE ---
Addendum entered by DARYL Pedroza 11/27/23 15:36: ADD: Patient has a nurse patient case coordinator through [employer] for any DC needs that may arise P [phone] Original Note: Initial DCP Assessment Note Pt is a 63 yo male, resident of [place], now POD#1 from [facility] PCP: Pierre Espinal Payer: [employer] Preferred Reviewed chart, pt discussed in multidisciplinary rounds this morning. Therapy has cleared pt for return home w/family to assist and pt has planned for home, DC order from Ortho has already been initiated this morning. Met w/patient to introduce self and role. Patient tells this GAME FARM HELPER he plans to return home although is concerned about his high blood pressure today. Patient denies needs from this CM team. No barriers identified at this time to patient's safe discharge home w/family to assist; close outpatient f/u recommended. CM team will plan to follow closely in case any DC needs or concerns arise. DARYL [place] Discharge Planning/Care Management CM Discharge Assessment Start: 11/27/23 13:47 Freq: Status: Active Protocol: Document 11/27/23 13:47 [facility] (Rec: 11/27/23 13:49 [facility] [id number]) Discharge Planning Assessment Assigned Yard Demurrage Clerk DARYL Bhagat DPOA/Assigned Designee Name Mesha Aguayo, spouse Contact Information [phone] Advance Directives? No Advance Directives on File No History Provided By Patient,Medical Record Prior Living Arrangements House Household Members spouse Type of transporation used prior to Drives own vehicle admit Independent with ADL's Yes Is patient alert and oriented? Yes Patient/Family Preference OP PT Therapy Barriers to Discharge No Discharge Plan Home Transportation Arrangement Spouse Referrals Initiated None needed
== END 2023-11-27 16:30 | disposition home or self-care (01) | DRG 455 ==
PROVIDERS: Admitting Provider Orthopaedic Surgery Orthopaedic Surgery of the Spine; PCP Family Medicine; Referring Provider Orthopaedic Surgery Orthopaedic Surgery of the Spine; Visit Provider Orthopaedic Surgery Orthopaedic Surgery of the Spine
PROC: 0SG30AJ Fusion of Lumbosacral Joint with Interbody Fusion Device, Posterior Approach, Anterior Column, Open Approach (ICD-10-PCS; principal; 2023-11-26 13:45)
DX: M51.26 Other intervertebral disc displacement, lumbar region (principal); M43.17 Spondylolisthesis, lumbosacral region; M48.07 Spinal stenosis, lumbosacral region; M51.37 Other intervertebral disc degeneration, lumbosacral region; Z87.891 Personal history of nicotine dependence
CPT/HCPCS: 72100; 76000; 97161; 97165; 97530; 97535; C1713; C1831; C9290; J0136; J0171; J0330; J0690; J1100; J1885; J2250; J2405; J2704; J3010; J3410